=== PATIENT | male | born 2000 | race Hispanic/Latino ===

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

== ENCOUNTER 2022-01-31 19:31 | Emergency (ER) | payer OTHER ==
[~2022-01-31] VITALS: Ht 185.4 cm; Wt 113.6 kg
[~2022-01-31 19:31] MED LIST: CEPH500T PO; NAPR220C14 PO
[2022-01-31 23:24] VITALS: BP 175/105
== END 2022-01-31 23:25 | disposition left against medical advice (07) ==
LOC: M ED 19:31
DX: Z53.29 Procedure and treatment not carried out because of patient's decision for other reasons (principal)

== ENCOUNTER 2022-05-17 02:21 | Emergency (ER) | payer OTHER ==
[~2022-05-17] VITALS: Ht 185.4 cm; Wt 120.9 kg
[2022-05-17] MEDS ORDERED: TRAZ-252 PO (02:37)
[2022-05-17 12:00] VITALS: BP 141/83
== END 2022-05-17 12:10 | disposition home or self-care (01) ==
LOC: M ED 02:21
DX: U07.1 COVID-19 (principal); I10 Essential (primary) hypertension; J45.909 Unspecified asthma, uncomplicated; F17.290 Nicotine dependence, other tobacco product, uncomplicated